=== PATIENT | male | born 1960 | race Caucasian/White ===

== ENCOUNTER 2017-04-25 23:02 | Emergency (ER) | payer OTHER ==
[2017-04-25] MEDS: SODIUM CHLORIDE 0.9% 1000ML 1,000 ML IVS ONE (23:20)
--- NOTE | 2017-04-25 23:21 | ED.PDOC ---
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 HIS TOOK BP AND IT WAS 78/42. SHE REPEATED, SBP 82. EMS CAME AND BP 121/79. PT STATES ALMOST NO WATER INTAKE PAST 2 D BUT 3 CUPS OF COFFEE TODAY. TAKES LISINOPRIL FOR BP. Allergies/Adverse Reactions: Allergies NO KNOWN ALLERGY Allergy (Verified 04/25/17 23:30) Home Medications: Ambulatory Orders Lisinopril 20 mg PO BID 03/26/13 Atorvastatin Calcium [Lipitor] 20 mg PO DAILY 04/25/17 Omeprazole Magnesium [Prilosec Otc] 20 mg PO DAILY 04/25/17 Review of Systems - Review of Systems Constitutional: States: no symptoms reported EENTM: States: no symptoms reported Respiratory: States: no symptoms reported Cardiology: States: no symptoms reported Gastrointestinal/Abdominal: States: no symptoms reported Genitourinary: States: no symptoms reported Musculoskeletal: States: no symptoms reported Skin: States: no symptoms reported Neurological: States: no symptoms reported Endocrine: States: no symptoms reported Hematologic/Lymphatic: States: no symptoms reported All other Systems: Reviewed and Negative Past Medical History (General) - Patient Medical History Hx Congestive Heart Failure: No Hx Diabetes: No Physical Exam - Physical Exam General Appearance: Alert, Comfortable Eyes, Ears, Nose, Throat Exam: PERRL/EOMI, normal ENT inspection, TMs normal Neck: non-tender, full range of motion, supple Cardiovascular/Respiratory: regular rate, rhythm, no M/R/G, normal peripheral pulses, no JVD, normal breath sounds, no respiratory distress Gastrointestinal/Abdominal: normal bowel sounds, non tender, soft Extremity: normal range of motion, normal inspection 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 Coordination/Gait: normal finger to nose, negative Romberg's sign Motor/Sensory: no motor deficit, no sensory deficit, no pronator drift Skin Exam: normal color, warm/dry Lymphatic: no adenopathy Progress - Results/Orders Results/Orders: ORTHOSTATIC V.S. NEG AND NO LIGHT-HEADEDNESS WHILE SEATED NOR STANDING. CBC NEG. EKG NSR. CMP - MILDLY ELEVATED BUN DDX: POOR PO FLUID INTAKE RESULTING IN DEHYDRATION, HYPOTENSION, THEN LIGHT HEADEDNESS/PRE-SYNCOPE X 1. REFER TO HIS PCP TO POSSIBLY DECREASE HIS ANTIHYPERTENSIVE MEDICATION. ENCOURAGED PO FLUID INTAKE. PT FEELS BACK TO HIS NL SELF. BP NOW 123/71. SAFE FOR DC BACK TO HOME. Departure - Departure Clinical Impression: Dehydration, Inadequate fluid intake, Hypotension, Pre-syncope, Elevated BUN Disposition: Discharge to Home or Self Care Condition: Good Departure Forms: ED Discharge - Pt. Copy, Patient Portal Self Enrollment Instructions: DI for Dehydration -- Adult Diet: resume usual diet Activity: increase activity as tolerated Referrals: Tam Sagastume III, MD [Primary Care Provider] - 1-5 Days Home Medications: Ambulatory Orders Lisinopril 20 mg PO BID 03/26/13 Atorvastatin Calcium [Lipitor] 20 mg PO DAILY 04/25/17 Omeprazole Magnesium [Prilosec Otc] 20 mg PO DAILY 04/25/17 Additional Instructions: You got dehydrated, which caused a drop in your blood pressure and the resulting light-headedness and other symptoms when you stood up. Please see your regular doctor to recheck your blood pressure and anti- hypertensive medication. It is important to drink at least 64 ounces of water per day to prevent becoming dehydrated.
[2017-04-25 23:28] VITALS: TEMP 97.3; O2SAT 96
[2017-04-26 00:38] VITALS: BP 123/71
== END 2017-04-26 00:39 | disposition home or self-care (01) ==
LOC: ER 23:02
DX: E86.0 Dehydration (principal); R55 Syncope and collapse; I95.9 Hypotension, unspecified; R79.89 Other specified abnormal findings of blood chemistry
CPT/HCPCS: 36415; 80053; 85025; 93005; J7030

== ENCOUNTER → 2018-02-18 | Outpatient (CLI) | payer OTHER | LOC: GMAL 11:30 | PROVIDERS: ATTEND Family Medicine | DX: D51.3 Other dietary vitamin B12 deficiency anemia (principal); R53.82 Chronic fatigue, unspecified; E55.9 Vitamin D deficiency, unspecified; Z12.5 Encounter for screening for malignant neoplasm of prostate ==

== ENCOUNTER → 2018-08-30 | Outpatient (CLI) | payer OTHER | LOC: LAB.O 08:03 | PROVIDERS: ATTEND Family Medicine | DX: R74.0 Nonspecific elevation of levels of transaminase and lactic acid dehydrogenase [LDH] (principal); I10 Essential (primary) hypertension; E11.9 Type 2 diabetes mellitus without complications ==